=== PATIENT | female | born 1940 | race Caucasian/White ===

== ENCOUNTER 2018-05-24 11:25 | Inpatient (IN) | payer MEDICARE ==
[~2018-05-24] VITALS: Ht 152.4 cm; Wt 62.8 kg
[2018-05-24 11:54] LABS: BASOPHILS % (AUTO) 0.3 % (0-1); EOSINOPHILS # (AUTO) 0.2 X10'3 (0-0.9); EOSINOPHILS % (AUTO) 2.3 % (0-6); HEMATOCRIT 38.4 % (35.0-45.0); LYMPHOCYTES # (AUTO) 1.8 X10'3 (1.1-4.8); LYMPHOCYTES % (AUTO) 19.7 % (21-51); MEAN CORPUSCULAR HEMOGLOBIN 34.3 PG (27.0-31.0); MEAN CORPUSCULAR VOLUME 101.1 FL (78-98); MEAN PLATELET VOLUME 8.5 FL (7.4-10.4); MONOCYTES % (AUTO) 10.5 % (2-12); NEUTROPHILS # (AUTO) 6.1 X10'3 (1.8-7.7); NEUTROPHILS % (AUTO) 67.2 % (42-75); PLATELET COUNT 177 X10'3 (140-440); RED CELL DISTRIBUTION WIDTH 13.4 % (11.5-14.5); WHITE BLOOD COUNT 9.1 X10'3 (4.5-11.0)
[2018-05-24] MEDS ORDERED: ondansetron/PF 4mg/2ml inj IV ONE (11:55)
[2018-05-24] MEDS ORDERED: aspirin 325mg tablet PO ONE (11:55)
[2018-05-24] MEDS ORDERED: morphine 4 MG/ML inj SYRINge IV PRN (11:55)
[2018-05-24] MEDS ORDERED: ketorolac tromethamine 15mg/ml inj. IV ONE (11:55)
[2018-05-24] MEDS ORDERED: normal saline 1000ML IV soln IVB ONE (11:55)
[2018-05-24 12:08] LABS: ALANINE AMINOTRANSFERASE 34 U/L (12-78); ALBUMIN 3.6 G/DL (3.4-5.0); ALBUMIN/GLOBULIN RATIO 1.2 (1.1-1.5); ALKALINE PHOSPHATASE 81 IU/L (46-116); ANION GAP 9 (8-16); ASPARTATE AMINO TRANSFERASE 28 U/L (10-37); BILIRUBIN,TOTAL 1.2 MG/DL (0.1-1.0); BLOOD UREA NITROGEN 23 MG/DL (7-18); BUN/CREATININE RATIO 24.2 (6.6-38.0); CALCIUM 9.3 MG/DL (8.5-10.1); CHLORIDE 102 MMOL/L (99-107); CREATININE 0.95 MG/DL (0.40-0.90); GLUCOSE 155 MG/DL (70-104); POTASSIUM 3.8 MMOL/L (3.5-5.1); SODIUM 142 MMOL/L (135-145); TOTAL CARBON DIOXIDE 30.9 MMOL/L (24-32); TOTAL PROTEIN 6.6 G/DL (6.4-8.2); eGFR 57 ML/MIN
[2018-05-24 12:25] LABS: D-DIMER 0.69 MG/L FEU (0-0.50); PARTIAL THROMBOPLASTIN TIME 24 SECONDS (22-32); PROTHROMBIN TIME 10.1 SECONDS (9.0-12.0)
[2018-05-24] MEDS ORDERED: enoxaparin 100mg/ml syringe SUBCUT ONE (12:25)
[2018-05-24] MEDS ORDERED: morphine 2 MG/ML inj. syringe IV PRN (13:05)
[2018-05-24] MEDS ORDERED: ondansetron/PF 4mg/2ml inj IV PRN (13:05)
[2018-05-24] MEDS ORDERED: mag hydrox/Alum hydrox/simeth 30ml oral suspension PO PRN (13:05)
[2018-05-24] MEDS ORDERED: magnesium hydroxide 30ml (MOM) UD suspension PO PRN (13:05)
[2018-05-24] MEDS: normal saline 1000ml 1,000 ML IV SCH ×2 (14:51→23:03)
[2018-05-24] MEDS: enoxaparin 60mg/0.6ml syringe SUBCUT SCH (14:55)
[2018-05-24] MEDS ORDERED: ISOS10TA8 (15:05)
[2018-05-24] MEDS ORDERED: ISOS20TA6 (15:05)
[2018-05-24] MEDS ORDERED: PARO30TA4 PO (15:05)
[2018-05-24] MEDS ORDERED: ROSU20TA PO (15:05)
[2018-05-24] MEDS ORDERED: TEMA15CA5 PO (15:05)
[2018-05-24] MEDS ORDERED: CLOP75TA35 PO (15:05)
[2018-05-24] MEDS ORDERED: MELO-100 PO (15:05)
[2018-05-24 17:10] VITALS: BP 124/59
[2018-05-24] MEDS ORDERED: ISOS30TA6 PO (17:26)
[2018-05-24] MEDS ORDERED: temazepam 15mg capsule PO PRN (17:40)
[2018-05-24 18:00] VITALS: BP 122/78
[2018-05-24] MEDS: carVEDilol 3.125mg tablet PO SCH (19:32)
[2018-05-24] MEDS ORDERED: enoxaparin 60mg/0.6ml syringe SUBCUT SCH (20:00)
[2018-05-24 22:00] VITALS: BP 95/50
[2018-05-25] VITALS (10 sets, daily range): BP systolic 92–140; BP diastolic 53–77
[2018-05-25 01:04] LABS: ALBUMIN 2.7 G/DL (3.4-5.0); ANION GAP 5 (8-16); BLOOD UREA NITROGEN 15 MG/DL (7-18); BUN/CREATININE RATIO 22.1 (6.6-38.0); CALCIUM 8.4 MG/DL (8.5-10.1); CHLORIDE 110 MMOL/L (99-107); CREATININE 0.68 MG/DL (0.40-0.90); GLUCOSE 112 MG/DL (70-104); SODIUM 144 MMOL/L (135-145); TOTAL CARBON DIOXIDE 29.1 MMOL/L (24-32); eGFR 84 ML/MIN
[2018-05-25 01:05] LABS: BASOPHILS % (AUTO) 0.6 % (0-1); EOSINOPHILS # (AUTO) 0.1 X10'3 (0-0.9); EOSINOPHILS % (AUTO) 1.6 % (0-6); HEMATOCRIT 32.4 % (35.0-45.0); HEMOGLOBIN 11.1 g/dl (12.0-16.0); LYMPHOCYTES # (AUTO) 1.5 X10'3 (1.1-4.8); LYMPHOCYTES % (AUTO) 28.3 % (21-51); MEAN CORPUSCULAR HEMOGLOBIN 34.5 PG (27.0-31.0); MEAN CORPUSCULAR HGB CONC 34.1 % (33.0-36.5); MEAN CORPUSCULAR VOLUME 101.1 FL (78-98); MEAN PLATELET VOLUME 8.7 FL (7.4-10.4); MONOCYTES # (AUTO) 0.5 X10'3 (0-0.9); MONOCYTES % (AUTO) 9.8 % (2-12); NEUTROPHILS # (AUTO) 3.2 X10'3 (1.8-7.7); NEUTROPHILS % (AUTO) 59.7 % (42-75); PLATELET COUNT 136 X10'3 (140-440); RED BLOOD COUNT 3.21 X10'6 (4.20-5.60); RED CELL DISTRIBUTION WIDTH 12.3 % (11.5-14.5); WHITE BLOOD COUNT 5.3 X10'3 (4.5-11.0)
[2018-05-25] MEDS: acetaminophen 325mg tablet PO PRN ×2 (05:40→19:03)
[2018-05-25 07:40] LABS: CHOL/HDL RATIO 2.4 (0.00-4.99); CHOLESTEROL 102 MG/DL (0-200); HDL CHOLESTEROL 43 MG/DL (35-60); LDL CHOLESTEROL 45 MG/DL (50-100); TRIGLYCERIDES 78 MG/DL (20-135)
[2018-05-25] MEDS: aspirin 81mg tablet.DR PO SCH (07:51)
[2018-05-25] MEDS: isosorbide mononitrate 30mg tab.SR.24H PO SCH (07:51)
[2018-05-25] MEDS: atorvastatin 20mg tablet PO SCH (07:51)
[2018-05-25] MEDS: clopidogrel 75mg tablet PO SCH (07:51)
[2018-05-25] MEDS: PARoxetine 10mg tablet PO SCH (07:52)
[2018-05-25] MEDS: tirofiban 5mg in NS 100mL 100 ML IV SCH ×3 (07:52→22:10)
[2018-05-25] MEDS: enoxaparin 60mg/0.6ml syringe SUBCUT SCH ×2 (07:56→20:00)
[2018-05-25] MEDS: carVEDilol 3.125mg tablet PO SCH ×2 (08:00→20:00)
[2018-05-25] MEDS: normal saline 1000ml 1,000 ML IV SCH ×3 (12:17→22:10)
[2018-05-25] MEDS ORDERED: sodium ferric gluc complex inj 125 MG in normal saline 100ml IV soln 100 ML IV SCH (12:20)
[2018-05-25 15:00] LABS: BASOPHILS % (AUTO) 0.6 % (0-1); EOSINOPHILS # (AUTO) 0.1 X10'3 (0-0.9); EOSINOPHILS % (AUTO) 2.1 % (0-6); HEMATOCRIT 31.1 % (35.0-45.0); HEMOGLOBIN 10.3 g/dl (12.0-16.0); LYMPHOCYTES # (AUTO) 1.4 X10'3 (1.1-4.8); LYMPHOCYTES % (AUTO) 31.4 % (21-51); MEAN CORPUSCULAR HEMOGLOBIN 33.7 PG (27.0-31.0); MEAN CORPUSCULAR HGB CONC 33.1 % (33.0-36.5); MEAN CORPUSCULAR VOLUME 101.8 FL (78-98); MEAN PLATELET VOLUME 8.8 FL (7.4-10.4); MONOCYTES # (AUTO) 0.4 X10'3 (0-0.9); MONOCYTES % (AUTO) 9.1 % (2-12); NEUTROPHILS # (AUTO) 2.6 X10'3 (1.8-7.7); NEUTROPHILS % (AUTO) 56.8 % (42-75); PLATELET COUNT 147 X10'3 (140-440); RED BLOOD COUNT 3.06 X10'6 (4.20-5.60); RED CELL DISTRIBUTION WIDTH 13.7 % (11.5-14.5); WHITE BLOOD COUNT 4.5 X10'3 (4.5-11.0)
[2018-05-25] MEDS ORDERED: LIDOcaine 1% (10mg/ml)w/preservative injection 20ml MDV ONE (19:54)
[2018-05-25] MEDS ORDERED: iohexol 350MG/ML 100ml bottle IV ONE (19:55)
[2018-05-25] MEDS ORDERED: midazolam 2 mg/2 ml injection ONE (20:28)
[2018-05-25] MEDS ORDERED: iohexol 350 MG/1 ML 200ml bottle ONE (20:45)
[2018-05-25] MEDS ORDERED: tirofiban 5mg in NS 100mL 100 ML IV ONE (21:02)
[2018-05-25] MEDS ORDERED: OXAZEpam 15mg capsule PO PRN (22:15)
[2018-05-25] MEDS ORDERED: HYDROcodone/acetaminophen 5mg/325mg tablet PO PRN (22:15)
[2018-05-25] MEDS ORDERED: proCHLORperazine 10 MG/2 ml inj IV PRN (22:15)
[2018-05-25] MEDS ORDERED: ondansetron/PF 4mg/2ml inj IV PRN (22:15)
[2018-05-25] MEDS: HYDROcodone/acetaminophen 10/325mg tab PO PRN (23:10)
[2018-05-26 00:15] VITALS: BP 125/71
[2018-05-26 01:15] VITALS: BP 128/81
[2018-05-26] MEDS: HYDROcodone/acetaminophen 10/325mg tab PO PRN (04:49)
[2018-05-26] MEDS: normal saline 1000ml 1,000 ML IV SCH ×2 (05:03→07:36)
[2018-05-26 06:00] VITALS: BP 106/54
[2018-05-26] MEDS: enoxaparin 60mg/0.6ml syringe SUBCUT SCH (06:42)
[2018-05-26 07:01] LABS: BASOPHILS % (AUTO) 0.3 % (0-1); EOSINOPHILS # (AUTO) 0.1 X10'3 (0-0.9); EOSINOPHILS % (AUTO) 2.4 % (0-6); HEMATOCRIT 32.7 % (35.0-45.0); LYMPHOCYTES # (AUTO) 1.2 X10'3 (1.1-4.8); LYMPHOCYTES % (AUTO) 26.8 % (21-51); MEAN CORPUSCULAR HEMOGLOBIN 33.9 PG (27.0-31.0); MEAN CORPUSCULAR HGB CONC 33.5 % (33.0-36.5); MEAN CORPUSCULAR VOLUME 101.3 FL (78-98); MEAN PLATELET VOLUME 9.2 FL (7.4-10.4); MONOCYTES # (AUTO) 0.5 X10'3 (0-0.9); MONOCYTES % (AUTO) 10.7 % (2-12); NEUTROPHILS # (AUTO) 2.7 X10'3 (1.8-7.7); NEUTROPHILS % (AUTO) 59.8 % (42-75); PLATELET COUNT 147 X10'3 (140-440); RED BLOOD COUNT 3.23 X10'6 (4.20-5.60); RED CELL DISTRIBUTION WIDTH 13.6 % (11.5-14.5); WHITE BLOOD COUNT 4.4 X10'3 (4.5-11.0)
[2018-05-26 07:14] LABS: ALBUMIN 2.6 G/DL (3.4-5.0); ANION GAP 6 (8-16); BLOOD UREA NITROGEN 10 MG/DL (7-18); BUN/CREATININE RATIO 15.4 (6.6-38.0); CALCIUM 8.1 MG/DL (8.5-10.1); CHLORIDE 110 MMOL/L (99-107); CREATININE 0.65 MG/DL (0.40-0.90); GLUCOSE 101 MG/DL (70-104); POTASSIUM 3.8 MMOL/L (3.5-5.1); SODIUM 145 MMOL/L (135-145); TOTAL CARBON DIOXIDE 28.7 MMOL/L (24-32); eGFR 88 ML/MIN
[2018-05-26] MEDS: clopidogrel 75mg tablet PO SCH (07:35)
[2018-05-26] MEDS: isosorbide mononitrate 30mg tab.SR.24H PO SCH (07:36)
[2018-05-26] MEDS: PARoxetine 10mg tablet PO SCH (07:36)
[2018-05-26] MEDS: carVEDilol 3.125mg tablet PO SCH (07:36)
[2018-05-26] MEDS: aspirin 81mg tablet.DR PO SCH (07:36)
[2018-05-26] MEDS: atorvastatin 20mg tablet PO SCH (07:36)
[2018-05-26] MEDS ORDERED: COR3.125T PO (09:29)
[2018-05-26] MEDS ORDERED: ASPI-1071 PO (09:29)
[2018-05-26] MEDS ORDERED: NITR0.4T SL (09:29)
[2018-05-26 11:00] VITALS: BP 113/70
== END 2018-05-26 11:53 | disposition home or self-care (01) | DRG 280 ==
LOC: ER 11:26 → ED HOLD 13:03 → PCU 3S 17:10
PROVIDERS: ADMIT Family Medicine; ATTEND Family Medicine
PROC: 4A023N7 Measurement of Cardiac Sampling and Pressure, Left Heart, Percutaneous Approach (ICD-10-PCS; principal; 2018-05-25)
PROC: B2181ZZ Fluoroscopy of Left Internal Mammary Bypass Graft using Low Osmolar Contrast (ICD-10-PCS; 2018-05-25)
PROC: B2111ZZ Fluoroscopy of Multiple Coronary Arteries using Low Osmolar Contrast (ICD-10-PCS; 2018-05-25)
PROC: B2151ZZ Fluoroscopy of Left Heart using Low Osmolar Contrast (ICD-10-PCS; 2018-05-25)
PROC: B2121ZZ Fluoroscopy of Single Coronary Artery Bypass Graft using Low Osmolar Contrast (ICD-10-PCS; 2018-05-25)
PROC: 02JA3ZZ Inspection of Heart, Percutaneous Approach (ICD-10-PCS; 2018-05-25)
DX: I21.4 Non-ST elevation (NSTEMI) myocardial infarction (principal); I50.31 Acute diastolic (congestive) heart failure; E78.5 Hyperlipidemia, unspecified; I25.10 Atherosclerotic heart disease of native coronary artery without angina pectoris; F32.9 Major depressive disorder, single episode, unspecified; I11.0 Hypertensive heart disease with heart failure; I25.2 Old myocardial infarction; Z90.710 Acquired absence of both cervix and uterus; Z95.1 Presence of aortocoronary bypass graft; Z90.49 Acquired absence of other specified parts of digestive tract; Z79.899 Other long term (current) drug therapy; Z79.82 Long term (current) use of aspirin; Z86.73 Personal history of transient ischemic attack (TIA), and cerebral infarction without residual deficits; Z87.11 Personal history of peptic ulcer disease; Z87.891 Personal history of nicotine dependence
CPT/HCPCS: 36415; 71045; 80048; 80053; 80061; 83880; 84484; 85025; 85379; 85610; 85730; 87070; 92920; 93005; 93306; 93459; 96361; 96374; 96375; 99152; 99285; A4620; A6257; C1725; C1760; C1769; G0378; J1644; J1650; J1885; J2001; J2250; J2270; J2405; J2916; J3246; J7030; Q9967

== ENCOUNTER 2022-04-23 10:31 | Day surgery (SDC) | payer MEDICARE ==
[2022-04-23] VITALS (7 sets, daily range): BP systolic 93–141; BP diastolic 43–125
[~2022-04-23] VITALS: Ht 152.4 cm; Wt 64.0 kg
[~2022-04-23 10:31] MED LIST: ASPI-1071 PO; CLOP75TA34 PO; COR3.125T PO; ISOS30TA84 PO; NITR0.4T SL; PARO30TA4 PO; ROSU20TA2 PO; TEMA15CA5 PO
[2022-04-23] MEDS ORDERED: ASPI81TA52 PO (11:05)
[2022-04-23] MEDS ORDERED: Fiber (11:05)
[2022-04-23] MEDS ORDERED: OMEP20CA16 PO (11:05)
[2022-04-23] MEDS ORDERED: IBUP-1984 PO (11:05)
[2022-04-23] MEDS ORDERED: DULO-31 PO (11:05)
[2022-04-23] MEDS ORDERED: NITR0.4T48 SL (11:05)
[2022-04-23] MEDS ORDERED: diphenhydrAMINE 25mg capsule PO PRN (11:10)
[2022-04-23] MEDS ORDERED: normal saline 1,000 ML IV SCH (11:10)
[2022-04-23] MEDS ORDERED: LORazepam 0.5 MG tablet PO PRN (11:10)
[2022-04-23 12:06] LABS: BASOPHILS % (AUTO) 0.6 % (0-1); EOSINOPHILS # (AUTO) 0.1 X10'3 (0-0.9); EOSINOPHILS % (AUTO) 1.4 % (0-6); HEMATOCRIT 39.8 % (35.0-45.0); HEMOGLOBIN 13.3 g/dl (12.0-16.0); LYMPHOCYTES # (AUTO) 1.8 X10'3 (1.1-4.8); LYMPHOCYTES % (AUTO) 22.3 % (21-51); MEAN CORPUSCULAR HEMOGLOBIN 32.2 PG (27.0-31.0); MEAN CORPUSCULAR HGB CONC 33.3 g/dL (33.0-36.5); MEAN CORPUSCULAR VOLUME 96.7 FL (78-98); MEAN PLATELET VOLUME 8.8 FL (7.4-10.4); MONOCYTES # (AUTO) 0.7 X10'3 (0-0.9); NEUTROPHILS # (AUTO) 5.3 X10'3 (1.8-7.7); NEUTROPHILS % (AUTO) 66.7 % (42-75); PLATELET COUNT 154 X10'3 (140-440); RED BLOOD COUNT 4.12 X10'6 (4.20-5.60); RED CELL DISTRIBUTION WIDTH 13.4 % (11.5-14.5); WHITE BLOOD COUNT 7.9 X10'3 (4.5-11.0)
[2022-04-23 12:12] LABS: ALBUMIN 4.2 G/DL (3.4-5.0); ANION GAP 7 (8-16); BLOOD UREA NITROGEN 13 MG/DL (7-18); BUN/CREATININE RATIO 15.9 (6.6-38.0); CALCIUM 9.4 MG/DL (8.5-10.1); CHLORIDE 104 MMOL/L (99-107); CREATININE 0.82 MG/DL (0.40-0.90); GLUCOSE 119 MG/DL (70-104); POTASSIUM 3.9 MMOL/L (3.5-5.1); SODIUM 141 MMOL/L (135-145); TOTAL CARBON DIOXIDE 30.3 MMOL/L (24-32); eGFR 67 ML/MIN
[2022-04-23 12:13] LABS: APTT 23 SECONDS (22-32)
[2022-04-23] MEDS ORDERED: heparin 1,000unit/ml 10ml vial 10 ML ONE (13:10)
[2022-04-23] MEDS ORDERED: midazolam 1 mg/ML 2ml injection ONE (13:10)
[2022-04-23] MEDS ORDERED: fentaNYL/PF 50MCG/1 ML 2ML syringe ONE ×2 (13:10→14:17)
[2022-04-23] MEDS ORDERED: iohexol 300mg/ml 100ml inj. ONE (13:10)
[2022-04-23] MEDS ORDERED: nitroGLYCERIN-Tridil 50MG/D5W 250 ML IV ONE (13:11)
[2022-04-23] MEDS ORDERED: LIDOcaine 1% 30ml preserv. free vial ONE (13:15)
[2022-04-23] MEDS ORDERED: iohexol 350MG/ML 100ml bottle IV ONE ×2 (14:31→15:08)
[2022-04-23] MEDS ORDERED: aspirin 325mg tablet ONE (14:37)
[2022-04-23] MEDS ORDERED: clopidogrel 300mg tablet ONE (14:37)
[2022-04-23] MEDS ORDERED: ondansetron/PF 4mg/2ml inj ONE (14:54)
[2022-04-23] MEDS ORDERED: HYDROcodone/acetaminophen 5mg/325mg tablet PO PRN (16:20)
[2022-04-23] MEDS ORDERED: HYDROcodone/acetaminophen 10/325mg tab PO PRN (16:20)
== END 2022-04-23 17:55 | disposition home or self-care (01) ==
LOC: SSTAY O 10:31
PROVIDERS: ATTEND Student in an Organized Health Care Education/Training Program
DX: I25.118 Atherosclerotic heart disease of native coronary artery with other forms of angina pectoris (principal); I10 Essential (primary) hypertension; I25.82 Chronic total occlusion of coronary artery; E78.5 Hyperlipidemia, unspecified; G47.33 Obstructive sleep apnea (adult) (pediatric); Z79.01 Long term (current) use of anticoagulants; Z79.899 Other long term (current) drug therapy; Z88.8 Allergy status to other drugs, medicaments and biological substances; Z98.890 Other specified postprocedural states; Z95.0 Presence of cardiac pacemaker
CPT/HCPCS: 36415; 80048; 85025; 85610; 85730; 93005; 93459; 99152; 99153; C1725; C1751; C1760; C1769; C1874; C1892; C1894; C9600; J1644; J2250; J2405; J3010; J3490; J7030; Q0163; Q9967; 92920; A4620; A6258; C1761

== ENCOUNTER 2022-06-14 12:36 | Day surgery (SDC) | payer MEDICARE ==
[2022-06-12 11:24] LABS: BASOPHILS % (AUTO) 0.6 % (0-1); EOSINOPHILS # (AUTO) 0.1 X10'3 (0-0.9); EOSINOPHILS % (AUTO) 1.7 % (0-6); HEMATOCRIT 38.5 % (35.0-45.0); HEMOGLOBIN 13.1 g/dl (12.0-16.0); LYMPHOCYTES # (AUTO) 1.3 X10'3 (1.1-4.8); LYMPHOCYTES % (AUTO) 20.1 % (21-51); MEAN CORPUSCULAR HEMOGLOBIN 33.1 PG (27.0-31.0); MEAN CORPUSCULAR HGB CONC 34.1 g/dL (33.0-36.5); MEAN PLATELET VOLUME 8.5 FL (7.4-10.4); MONOCYTES # (AUTO) 0.6 X10'3 (0-0.9); MONOCYTES % (AUTO) 8.9 % (2-12); NEUTROPHILS # (AUTO) 4.6 X10'3 (1.8-7.7); NEUTROPHILS % (AUTO) 68.7 % (42-75); PLATELET COUNT 168 X10'3 (140-440); RED BLOOD COUNT 3.97 X10'6 (4.20-5.60); RED CELL DISTRIBUTION WIDTH 13.7 % (11.5-14.5); WHITE BLOOD COUNT 6.6 X10'3 (4.5-11.0)
[2022-06-12 11:31] LABS: APTT 25 SECONDS (22-32)
[2022-06-12 11:42] LABS: ALBUMIN 3.8 G/DL (3.4-5.0); BLOOD UREA NITROGEN 21 MG/DL (7-18); BUN/CREATININE RATIO 20.2 (6.6-38.0); CALCIUM 9.2 MG/DL (8.5-10.1); CREATININE 1.04 MG/DL (0.40-0.90); GLUCOSE 200 MG/DL (70-104); eGFR 51 ML/MIN
[2022-06-12 11:45] LABS: ANION GAP 8 (8-16); CHLORIDE 102 MMOL/L (99-107); POTASSIUM 4.5 MMOL/L (3.5-5.1); SODIUM 137 MMOL/L (135-145); TOTAL CARBON DIOXIDE 26.7 MMOL/L (24-32)
[~2022-06-14] VITALS: Ht 154.9 cm; Wt 64.5 kg
[2022-06-14] VITALS (8 sets, daily range): BP systolic 114–156; BP diastolic 61–95
[~2022-06-14 12:36] MED LIST changes: -ASPI-1071 PO; +ASPI81TA52 PO; -CLOP75TA34 PO; -COR3.125T PO; +DULO-31 PO; +Fiber; +IBUP-1984 PO; -NITR0.4T SL; +NITR0.4T48 SL; +OMEP20CA16 PO; -TEMA15CA5 PO
[2022-06-14] MEDS ORDERED: normal saline 1,000 ML IV SCH (12:50)
[2022-06-14] MEDS ORDERED: diphenhydrAMINE 25mg capsule PO PRN (12:50)
[2022-06-14] MEDS ORDERED: LORazepam 0.5 MG tablet PO PRN (12:50)
[2022-06-14] MEDS ORDERED: CLOP75TA34 PO (13:00)
[2022-06-14] MEDS ORDERED: LIDOcaine 1% (10mg/ml) 2ml vial ONE (13:21)
[2022-06-14] MEDS ORDERED: nitroGLYCERIN-Tridil 50MG/D5W 250 ML IV ONE (13:21)
[2022-06-14] MEDS ORDERED: verapamil 2.5 mg/ml inj IV ONE (13:21)
[2022-06-14] MEDS ORDERED: fentaNYL/PF 50MCG/1 ML 2ML syringe ONE ×2 (13:21→13:50)
[2022-06-14] MEDS ORDERED: midazolam 1 mg/ML 2ml injection ONE ×2 (13:21→13:50)
[2022-06-14] MEDS ORDERED: heparin 1,000unit/ml 10ml vial 10 ML ONE (13:22)
[2022-06-14] MEDS ORDERED: iohexol 350MG/ML 100ml bottle IV ONE ×2 (13:22→13:58)
[2022-06-14] MEDS ORDERED: LIDOcaine 1% 30ml preserv. free vial ONE (13:39)
[2022-06-14] MEDS ORDERED: HYDROcodone/acetaminophen 5mg/325mg tablet PO PRN (14:30)
[2022-06-14] MEDS ORDERED: ondansetron/PF 4mg/2ml inj IV PRN (14:30)
[2022-06-14] MEDS ORDERED: proCHLORperazine 10 MG/2 ml inj IV PRN (14:30)
[2022-06-14] MEDS ORDERED: HYDROcodone/acetaminophen 10/325mg tab PO PRN (14:30)
[2022-06-14] MEDS ORDERED: OXAZEpam 15mg capsule PO PRN (14:30)
== END 2022-06-14 16:45 | disposition home or self-care (01) ==
LOC: SSTAY O 12:36
PROVIDERS: ATTEND Student in an Organized Health Care Education/Training Program
DX: I25.810 Atherosclerosis of coronary artery bypass graft(s) without angina pectoris (principal); G47.33 Obstructive sleep apnea (adult) (pediatric); Z86.73 Personal history of transient ischemic attack (TIA), and cerebral infarction without residual deficits; Z95.0 Presence of cardiac pacemaker; Z79.01 Long term (current) use of anticoagulants; Z79.899 Other long term (current) drug therapy; Z98.890 Other specified postprocedural states; Z88.8 Allergy status to other drugs, medicaments and biological substances
CPT/HCPCS: 36415; 80048; 85025; 85610; 85730; 93005; 93459; 99152; C1760; C1769; C1894; J1644; J2250; J3010; J3490; J7030; Q9967; 99153

== ENCOUNTER 2022-12-03 14:07 | Emergency (ER) | payer MEDICARE ==
[~2022-12-03] VITALS: Ht 152.4 cm; Wt 60.5 kg
[~2022-12-03 14:07] MED LIST changes: +CLOP75TA34 PO; -DULO-31 PO
[2022-12-03 14:11] VITALS: BP 109/67
[2022-12-03] MEDS ORDERED: LIDOcaine 5% patch TP STA (15:30)
[2022-12-03] MEDS ORDERED: traMADol 50MG tablet PO ONE (15:30)
[2022-12-03] MEDS ORDERED: LIDO-15 TD (15:56)
[2022-12-03] MEDS ORDERED: TRAM50TA2 PO (15:56)
== END 2022-12-03 17:24 | disposition home or self-care (01) ==
LOC: ER 14:08
DX: R07.9 Chest pain, unspecified (principal); I51.9 Heart disease, unspecified; Z90.49 Acquired absence of other specified parts of digestive tract; Z79.899 Other long term (current) drug therapy; Z79.82 Long term (current) use of aspirin; W19.XXXA Unspecified fall, initial encounter; Y93.89 Activity, other specified; Y92.89 Other specified places as the place of occurrence of the external cause; Y99.8 Other external cause status
CPT/HCPCS: 70450; 71045; 93005; 99284

== ENCOUNTER 2022-12-15 01:14 | Emergency (ER) | payer MEDICARE ==
[~2022-12-15] VITALS: Ht 152.4 cm; Wt 60.5 kg
[~2022-12-15 01:14] MED LIST changes: +LIDO-15 TD
[2022-12-15 01:21] VITALS: BP 137/81
[2022-12-15 02:20] LABS: BASOPHILS % (AUTO) 0.6 % (0-1); EOSINOPHILS # (AUTO) 0.1 X10'3 (0-0.9); HEMATOCRIT 37.8 % (35.0-45.0); HEMOGLOBIN 12.7 g/dl (12.0-16.0); LYMPHOCYTES # (AUTO) 2.1 X10'3 (1.1-4.8); LYMPHOCYTES % (AUTO) 30.5 % (21-51); MEAN CORPUSCULAR HGB CONC 33.5 g/dL (33.0-36.5); MEAN CORPUSCULAR VOLUME 98.4 FL (78-98); MEAN PLATELET VOLUME 8.2 FL (7.4-10.4); MONOCYTES # (AUTO) 0.7 X10'3 (0-0.9); NEUTROPHILS % (AUTO) 56.9 % (42-75); PLATELET COUNT 207 X10'3 (140-440); RED BLOOD COUNT 3.84 X10'6 (4.20-5.60); RED CELL DISTRIBUTION WIDTH 13.8 % (11.5-14.5)
[2022-12-15 02:29] LABS: ALANINE AMINOTRANSFERASE 20 U/L (12-78); ALBUMIN 3.8 G/DL (3.4-5.0); ALBUMIN/GLOBULIN RATIO 1.3 (1.1-1.5); ALKALINE PHOSPHATASE 113 IU/L (46-116); ANION GAP 9 (8-16); ASPARTATE AMINO TRANSFERASE 22 U/L (10-37); BILIRUBIN,TOTAL 0.7 MG/DL (0.1-1.0); BLOOD UREA NITROGEN 17 MG/DL (7-18); BUN/CREATININE RATIO 18.5 (10.0-20.0); CALCIUM 9.1 MG/DL (8.5-10.1); CHLORIDE 100 MMOL/L (99-107); CREATININE 0.92 MG/DL (0.40-0.90); GLUCOSE 150 MG/DL (70-104); POTASSIUM 3.7 MMOL/L (3.5-5.1); SODIUM 137 MMOL/L (135-145); TOTAL CARBON DIOXIDE 28.3 MMOL/L (24-32); TOTAL PROTEIN 6.7 G/DL (6.4-8.2); eGFR 59 ML/MIN
--- NOTE | 2022-12-15 04:05 | NUR ---
PT WANTS TO GO HOME. SECOND TROP DRAWN AND PT DC [facility]. PT DOESN'T BELIEVE IT CAN BE HER HEART AND WANTS TO GO HOME TO BED. SHE IS ACTIVE AND IN NO DISTRESS. NO PAIN. TALKING FULL SENTENCES. HERE WITH HER SISTER.
== END 2022-12-15 04:06 | disposition home or self-care (01) ==
LOC: ER 01:14
DX: S20.212A Contusion of left front wall of thorax, initial encounter (principal); W18.39XA Other fall on same level, initial encounter; Y93.89 Activity, other specified; Y92.89 Other specified places as the place of occurrence of the external cause; Y99.8 Other external cause status
CPT/HCPCS: 36415; 71045; 80053; 83880; 84484; 85025; 93005; 99285